=== PATIENT | male | born 1940 | race Caucasian/White ===

== ENCOUNTER 2017-01-20 19:51 | Inpatient (IN) | payer MEDICARE, OTHER ==
--- NOTE | ~2017-01-20 | PUL ---
[id number] [place]. [address] NAME: BEAU HANSEN : 39 STATUS : DIS IN PAT#: [id number] AGE: 76 ADM/REG DATE : 01/21/17 MR#: [id number] REPORT SERV DATE: 01/22/17 DICTATED BY: TREVOR QUIROGA DATE: 01/22/17 REPORT STATUS : Draft TRANSCRIBED BY: MODL DATE: 01/22/17 PULMONARY FUNCTION TEST TEST: Overnight pulse oximetry done on room air. DATA: Total recording time 6 hours 23 minutes, mean pulse 52, mean oxygen saturation 94.4%. Time with an oxygen saturation less than 88% is 0. INTERPRETATION: This is a normal overnight pulse oximetry test on room air. HFQ/LISAL Trevor Quiroga MD / [id number] CC: Leonardo Lugo M.D.
--- NOTE | ~2017-01-20 | DS ---
Discharge Summary [facility] [address] [place]. [address] NAME: BEAU HANSEN : 39 STATUS : DIS IN PAT#: [id number] AGE: 76 ADM/REG DATE : 01/21/17 MR#: [id number] REPORT SERV DATE: 01/23/17 DICTATED BY: MANDEEP SANTANA DATE: 01/22/17 REPORT STATUS : Draft TRANSCRIBED BY: MODL DATE: 01/22/17 ADMISSION DATE: 01/21/2017 DISCHARGE DATE: 01/22/2017 DISCHARGE DIAGNOSES: 1. Generalized weakness, gait disturbance, dysarthria. 2. High-grade left posterior circulation arterial stenosis with numerous chronic ischemic changes in the setting of a history of cerebrovascular accident. 3. Acute kidney injury, resolved. 4. Bradycardia. 5. Hypertension. 6. Obstructive sleep apnea, on current CPAP therapy. 7. Atrial fibrillation and chronic Coumadin therapy, most recent INR 2.7. 8. Morbid obesity. 9. History of paroxysmal supraventricular tachycardia. DISCHARGE MEDICINES: Aspirin 325 mg daily, Colazal 2250 mg daily, Bentyl 20 mg four times a day, Zantac 300 mg at bedtime, flecainide 50 mg twice a day, glucosamine chondroitin one tablet daily, Coumadin 4 mg at bedtime, diltiazem ER 120 mg daily, hydrochlorothiazide 12.5 mg daily, mesalamine 950 mg every other day, Antivert 25 mg three times a day p.r.n., Qvar inhale two puffs twice, Flonase nasal spray nares p.r.n. for allergies, Zyrtec 10 mg daily p.r.n. for allergies, Annie 180 mg daily p.r.n. for allergies, Nexium 40 mg daily, Probiotic [id number] one daily, Bioflex tablet [id number] daily, Blue-Emu ointment p.r.n. to joints, Lipitor 40 mg p.o. at bedtime, new prescription was written for this. HISTORY OF PRESENT ILLNESS: This is a pleasant 76-year-old white male who presented with some weakness and dizziness after working in the yard. Please see the initial H and P of Dr. Fco Khan. This patient was admitted to the Hospitalist Service for further evaluation and treatment. CONSULTS DURING THIS ADMISSION: Include Neurology, Dr. Torie Ruelas. PROCEDURES AND IMAGING: During this admission include initial CT of the brain that showed no acute CVA or other intracranial pathology that was acute, moderate to advanced diffuse cerebral involutional changes, deep white matter chronic microvascular ischemic changes. A carotid ultrasound that showed category 1 less than 50% stenosis bilaterally. An echocardiogram showing an ejection fraction of 60% with moderate pulmonary hypertension and mild tricuspid regurg. An MRI of the brain showing left posterior circulation artery of peripheral high-grade stenosis, atherosclerotic plaque present elsewhere with mild irregularities, but no significant stenosis and chronic small vessel ischemic changes with no other acute findings. HOSPITAL COURSE: I saw the patient beginning on 01/21/2017 where he was feeling some better. Symptoms had seemed to resolve but stated that the weakness, gait disturbance, dysarthria had been going on for quite some time ebbing and flowing, and he reported it at times when Discharge Summary [address] [address] NAME: BEAU HANSEN : 39 STATUS : DIS IN PAT#: [id number] AGE: 76 ADM/REG DATE : 01/21/17 MR#: [id number] REPORT SERV DATE: 01/23/17 DICTATED BY: MANDEEP SANTANA DATE: 01/22/17 REPORT STATUS : Draft TRANSCRIBED BY: LETHA DATE: 01/22/17 he was at synagogue and reported it at times at home so much more of a chronic problem and also he stated that his memory had not been as good as it had once been as well. After discussion with the neurologist, it was determined to obtain the above-described MRI. He had the above-described echocardiogram, carotid studies as well. Initially, the patient was somewhat bradycardic and his Cardizem was held; however, his heart rate then rebounded to the 90s. Cardizem was resumed. He stated that he was currently on CPAP therapy but it had been more than five years since he had had a sleep study. So an overnight oximetry test was done to further assess hypoxemia and this was within normal limits. But have instructed the patient that he does need to probably get an outpatient sleep study done. He continued to do well, improved and was felt safe for discharge home on 01/22/2017. I have instructed him to follow up with the neurologist in four to six weeks, to follow up with his primary care in the next seven days. We discussed the addition of Lipitor to his overall regimen and getting B12 injections through his primary care, given his physical exam findings of peripheral neuropathy and B12 of less than 400. He will also be following up with a will call order clerk given his finding of pulmonary hypertension and his known obstructive sleep apnea and discussed at length with the findings of the imaging testings with the neurologist, Dr. Torie Ruelas, who is in agreement with this plan going forward. I have updated the patient and the patient's at bedside. Questions were answered extensively. Please note that greater than 30 minutes was spent on this discharge for medication teaching, followup planning, and further disposition. CSC/MODL Mandeep Santana NP / [id number] CC: Leonardo Lugo M.D.
--- NOTE | ~2017-01-20 | HP ---
History And Physical [address] [place]. [address] NAME: BEAU HANSEN : 38 STATUS : ADM Samir PAT#: [id number] AGE: 76 ADM/REG DATE : 01/20/17 MR#: [id number] REPORT SERV DATE: 01/21/17 DICTATED BY: ISAIAH BOWDEN DATE: 01/21/17 REPORT STATUS : Draft TRANSCRIBED BY: MODJane DATE: 01/21/17 DATE OF ADMISSION: 01/20/2017 CHIEF COMPLAINT: This 76-year-old male presenting with dizziness and weakness episode after working in the yard this afternoon. HISTORY OF PRESENT ILLNESS: The patient's history was obtained through careful interview with the patient and , coupled with review of [facility] and [facility] medical records. The patient wonders if over the last month he has been having symptoms that have led up to tonight's presentation. He states he has been bumping into things, been unsteady in his gait. Sometimes he has had problems with his memory and occasional slurring of his speech as well. 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 It is in this context that on the day of admission, the patient was acting "like the weekend warrior," according to his mowing the grass and weed eating, and moving wheelbarrow about the yard. Apparently, he did not drink much water prior to this. It was a humid day, unseasonably sql engineer the 80s for this time of year, and he had to sit down after this and was trying to work on some aspects of his weed eater (possibly changing the string in it) when suddenly he had an extreme sense of dizziness and "profound weakness" as he calls it. He just felt weak all over and he actually was so weak that he could not even get up from a seated position and had to lay down against the bench. He was really unable to ambulate and had this weakness for 60 minutes or more before it began to subside. No facial droop. No double vision. No dysarthria today. No hemiparesis. He did not particularly feel more confused than normal. He believes he had a very similar episode back in 05/2016 and at that time, he was also doing quite a bit of work and had also developed a "virus" and had to be hospitalized at [facility] with almost the same exact symptoms as he presents with tonight. At that time, he had a negative MRI of the brain and with IV fluid resuscitation improved. The patient, this evening, did develop some slight chest discomfort described as a tightness across the middle of the chest with slight shortness of breath, six out of 10 severity. Its duration was about 30 minutes before it subsided spontaneously. He has had some nausea, but no vomiting. No change of bowel or bladder habit. REVIEW OF SYSTEMS: Otherwise, a 14-point review of systems was obtained and was negative. PAST MEDICAL HISTORY: 1. Atrial fibrillation, status post cardiac ablation, 2003, under the care Dr. Mustafa. 2. Obstructive sleep apnea. History And Physical [address] [address] NAME: BEAU HANSEN : 38 STATUS : ADM Samir PAT#: [id number] AGE: 76 ADM/REG DATE : 01/20/17 MR#: [id number] REPORT SERV DATE: 01/21/17 DICTATED BY: ISAIAH BOWDEN DATE: 01/21/17 REPORT STATUS : Draft TRANSCRIBED BY: LETHA DATE: 01/21/17 3. Left temporal lobe stroke, 2010, with chronic gait disturbance related to that. 4. COPD/asthma. 5. Ulcerative colitis in the past. This seems to be in remission on mesalamine, followed by Dr. Zheng. 6. Peptic ulcer disease in the duodenum with reflux symptoms. 7. Meniere's. 8. Tao's esophagus with gastric polyp history. 9. Colon polyps. 10.Multi nodular goiter. 11.Pneumonia. PAST SURGICAL HISTORY: 1. Cardiac ablation. 2. Cholecystectomy. 3. Appendectomy. 4. Vasectomy. 5. Ear cyst surgery. ALLERGIES: ADHESIVE. SOCIAL HISTORY: Used to be a heavy smoker up to two packs per day, but quit more than 10 years ago. Occasional alcohol use. 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 He is , has four children. FAMILY HISTORY: Father with myocardial infarction. Mother with ovarian cancer. Brother of lung cancer. CURRENT MEDICATIONS: Include aspirin 325 mg p.o. daily, Colazal, Zyrtec 10 mg p.o. daily as needed, Bentyl 20 mg p.o. four times a day, diltiazem extended release 120 mg p.o. daily, Nexium 40 mg p.o. daily, Annie p.r.n., flecainide 50 mg p.o. b.i.d., Flonase, glucosamine, hydrochlorothiazide 12.5 mg p.o. daily, Antivert, Zantac 300 mg p.o. at bedtime, mesalamine 950 mg p.o. every other day, Qvar, Blue-Emu ointment, probiotics, Bioflex, Coumadin 4 mg p.o. at bedtime. PHYSICAL EXAMINATION: VITAL SIGNS: Temperature 97.8, pulse 58, blood pressure 153/56, respiratory rate is 14, O2 saturation 92% on room air. GENERAL: A pleasant, cooperative male. No evidence of acute distress. HEENT: Pupils equal, round, and reactive to light. No conjunctival pallor. No scleral icterus. Nares are patent. Oropharynx is clear of obstruction. Dry mucous membranes. NECK: Trachea midline. No thyromegaly. LYMPH: No cervical lymphadenopathy. No supraclavicular lymphadenopathy. RESPIRATORY: Clear to auscultation at bases. No wheezes, rales, or rhonchi. Normal respiratory effort. CARDIOVASCULAR: Bradycardic, regular rhythm. No murmurs, rubs, or gallops. No extremity edema is appreciated. ABDOMEN: Soft, nontender, nondistended. Normal bowel sounds auscultated throughout. A History And Physical [address] [address] NAME: BEAU HANSEN : 38 STATUS : ADM Samir PAT#: [id number] AGE: 76 ADM/REG DATE : 01/20/17 MR#: [id number] REPORT SERV DATE: 01/21/17 DICTATED BY: ISAIAH BOWDEN DATE: 01/21/17 REPORT STATUS : Draft TRANSCRIBED BY: MODL DATE: 01/21/17 central pattern of morbid obesity. No hepatosplenomegaly. DERMATOLOGICAL: Warm and dry extremities, no pallor, no cyanosis. PSYCHIATRIC: Anxious affect and mood. Alert and oriented x3. NEUROLOGIC: Cranial nerves II through XII are intact and symmetrical. The patient has 5/5 strength in upper and lower extremities that is symmetrical. LABORATORY DATA: White blood cell count 11.3, hemoglobin 14, hematocrit 43, platelets 258. Sodium 143, potassium 3.3, chloride 108, bicarb 24, BUN 20, creatinine 0.48 from baseline creatinine of 0.9, glucose 139. CPK 463. Troponin negative. INR 2.8. Urinalysis negative for an infection, but shows six hyaline casts. STUDIES: 1. Chest x-ray by my own evaluation shows no acute cardiopulmonary process. 2. EKG by my own evaluation shows sinus bradycardia, premature atrial complex. 3. CT scan of the brain without contrast shows no acute intracranial process. ASSESSMENT AND PLAN: 1. Gait disturbance, memory problems, dysarthria, progressive. Obtain a Neurology consult. On aspirin and Coumadin. Check telemetry. 2. Heat exhaustion with rhabdomyolysis. Place on IV fluids. Follow his CPK. 3. Acute kidney injury. Hold hydrochlorothiazide. Place on IV fluids. 4. Paroxysmal atrial fibrillation with good INR, on Coumadin, in sinus rhythm now. Check telemetry. KPL/MODL Isaiah Bowden M.D. / [id number] CC: Pawan [facility] M.D.
[2017-01-20 19:36] LABS: BASOPHILS 0.6 %; BASOPHILS ABSOLUTE 0.07 10/3/uL (0.0-0.16); EOSINOPHILS 2.9 %; EOSINOPHILS ABSOLUTE 0.33 10/3/uL (0.0-0.53); ER CBC TAT 0 Hrs 09 Mins; HEMOGLOBIN 14.4 g/dL (13.6-17.8); IMMATURE GRANULOCYTES 0.6 %; IMMATURE GRANULOCYTES ABSOLUTE 0.07 10/3/uL (0.0-0.11); LYMPHOCYTES ABSOLUTE 2.71 10/3/uL (0.67-4.30); MEAN CORPUS HGB CONC 33.5 g/dL (32.0-36.0); MEAN CORPUSCULAR HEMOGLOB 27.9 pg (26.0-34.0); MEAN CORPUSCULAR VOLUME 83.2 fL (80-100); MEAN PLATELET VOLUME 10.1 fL (9.2-13.0); MONOCYTES 11.4 %; MONOCYTES ABSOLUTE 1.29 10/3/uL (0.21-1.20); NEUTROPHILS 60.5 %; NEUTROPHILS ABSOLUTE 6.84 10/3/uL (2.02-8.40); PLATELET COUNT 258 10/3/uL (150-400); RBC DISTRIBUTION WIDTH 15.3 % (12.0-16.0); RED CELL COUNT 5.17 10/6/uL (4.7-6.1); WHITE BLOOD CELLS 11.3 10/3/uL (4.5-10.5)
[2017-01-20 19:39] LABS: MANUAL DIFF NO %
[2017-01-20 19:44] LABS: INTERNATIONAL NORMAL RATI 2.8 UNITS (-); PARTIAL THROMBO TIME 40.3 SEC (22.5-37.2)
[2017-01-20 19:51] LABS: PROTIME (NOT ORD) 28.9 SEC (12.0-14.5)
[~2017-01-20 19:51] MED LIST: ALLEGRA180 PO; ASA5GR PO; ATRONASAL6 NAS; BENTYL10 PO; BENTYL20 PO; C1 PO; C25 PO; C5 PO; CARDCD120 PO; CARDCD180 PO; CARTIA XT120 MG/24 PO; COLAZAL 750 MG750 MG OR; COUMADIN3 MG PO; COUMADIN4 MG PO; FLECAINIDE; FLECAINIDE50 MG PO; GAS-X80 MG PO; HYDROCHLOROT12.5 MG PO; HYDROCHLOROTHIAZIDE; LEVBID; LEVBID PO; LOVENOX1C SC; MESALAMINE PR; MICROZIDE PO; MULTIPLE VIT PO; NASONEX NAS; NEXIUM40 PO; PATANASE0.6 % NAS; PRILOSEC; PRILOSEC OTC20 MG PO; PROVENTIL; PROVHFA INH; PULRESP.25 INH; QVAR40 MC1 INH; TAMBO50 PO; ZANTAC150 MG PO; [UNRECOGNIZED DRUG - OTHER] PR; cardizem
[2017-01-20] MEDS ORDERED: ZANTAC300 MG PO (19:52)
[2017-01-20] MEDS ORDERED: COLAZAL750 MG PO (19:52)
[2017-01-20] MEDS ORDERED: COUMADIN4 MG PO (19:52)
[2017-01-20 19:53] LABS: BUN (BLOOD UREA NITROGEN) 20 MG/DL (6-23); CALCIUM, SERUM 8.5 MG/DL (8.5-10.4); CHEST PAIN PROFILE TAT 0 Hrs 26 Mins; CHLORIDE, SERUM 108 MMOL/L (96-112); CO2 (CARBON DIOXIDE) 24 MMOL/L (24-34); CREATININE 1.48 MG/DL (0.70-1.30); GFR AFRICAN AMERICAN 52 ML/MIN (>=60); GFR NON AFRICAN AMERICAN 45 ML/MIN (>=60); GLUCOSE, SERUM 139 MG/DL (60-99); POTASSIUM, SERUM 3.3 MMOL/L (3.5-5.3); SODIUM, SERUM 143 MMOL/L (135-148); TROPONIN I <0.02 NG/ML (<0.05)
[2017-01-20] MEDS ORDERED: MCZ25 PO (19:53)
[2017-01-20] MEDS ORDERED: QVAR INHALER INH (19:53)
[2017-01-20] MEDS ORDERED: ASAEC PO (19:54)
[2017-01-20] MEDS ORDERED: FLONASE NAS (19:54)
[2017-01-20] MEDS ORDERED: GLUCCHONDR PO (19:54)
[2017-01-20] MEDS ORDERED: NEXIUM40 PO (19:55)
[2017-01-20] MEDS ORDERED: ALLEGRA180 PO (19:55)
[2017-01-20] MEDS ORDERED: ZYRTEC ALLGY10 MG PO (19:55)
[2017-01-20] MEDS ORDERED: BLUE EMU TOP (19:56)
[2017-01-20] MEDS ORDERED: PROBIOTIC OTC PO (19:57)
[2017-01-20] MEDS ORDERED: BIOFLEX PO (19:57)
[2017-01-20 20:15] LABS: D-DIMER QUANTITATIVE < 0.27 ug/mLFEU (< 0.50)
[2017-01-20 20:59] LABS: WBC (NOT ORDERED) (RFLEX) 0 (0-5)
[2017-01-20 21:06] LABS: CPK (IF ELEVATED MB BANDS) 463 U/L (0-200)
[2017-01-20 21:07] LABS: ASCORBIC ACID (UR NOT ORDER) NEG (NEG); BILIRUBIN, URINE NEGATIVE (NEG); ER URINALYSIS TAT 0 Hrs 14 Mins; KETONE, URINE NEGATIVE (NEG); LEUKOCYTE ESTERASE(NOT OR NEG (NEG); NITRITE (URINE) NEG (NEG)
[2017-01-20 21:07] LABS: CK-MB 2.3 NG/ML
[2017-01-21 05:15] LABS: BASOPHILS 0.5 %; BASOPHILS ABSOLUTE 0.05 10/3/uL (0.0-0.16); EOSINOPHILS 3.4 %; EOSINOPHILS ABSOLUTE 0.32 10/3/uL (0.0-0.53); HEMATOCRIT 42.6 % (40.0-51.0); HEMOGLOBIN 13.9 g/dL (13.6-17.8); IMMATURE GRANULOCYTES 0.5 %; IMMATURE GRANULOCYTES ABSOLUTE 0.05 10/3/uL (0.0-0.11); LYMPHOCYTES 28.4 %; LYMPHOCYTES ABSOLUTE 2.68 10/3/uL (0.67-4.30); MANUAL DIFF NO %; MEAN CORPUS HGB CONC 32.6 g/dL (32.0-36.0); MEAN CORPUSCULAR HEMOGLOB 27.8 pg (26.0-34.0); MEAN CORPUSCULAR VOLUME 85.2 fL (80-100); MEAN PLATELET VOLUME 10.1 fL (9.2-13.0); MONOCYTES 12.7 %; NEUTROPHILS 54.5 %; NEUTROPHILS ABSOLUTE 5.14 10/3/uL (2.02-8.40); PLATELET COUNT 254 10/3/uL (150-400); RBC DISTRIBUTION WIDTH 15.5 % (12.0-16.0); WHITE BLOOD CELLS 9.4 10/3/uL (4.5-10.5)
[2017-01-21 05:21] LABS: INTERNATIONAL NORMAL RATI 2.9 UNITS (-); PARTIAL THROMBO TIME 45.3 SEC (22.5-37.2); PROTIME (NOT ORD) 30.1 SEC (12.0-14.5)
[2017-01-21 05:39] LABS: BUN (BLOOD UREA NITROGEN) 21 MG/DL (6-23); CALCIUM, SERUM 8.4 MG/DL (8.5-10.4); CHLORIDE, SERUM 109 MMOL/L (96-112); CO2 (CARBON DIOXIDE) 26 MMOL/L (24-34); CPK 377 U/L (0-200); CREATININE 1.25 MG/DL (0.70-1.30); GFR AFRICAN AMERICAN 64 ML/MIN (>=60); GFR NON AFRICAN AMERICAN 55 ML/MIN (>=60); SGOT(AST) 12 U/L (5-40); SGPT(ALT) 13 U/L (5-65); SODIUM, SERUM 143 MMOL/L (135-148); TOTAL BILIRUBIN 0.3 MG/DL (0-1.2); TOTAL PROTEIN 6.2 G/DL (6.0-8.5); TROPONIN I <0.02 NG/ML (<0.05)
[2017-01-21 05:40] LABS: A/G RATIO 0.9 (0.7-1.9); ALBUMIN 2.9 G/DL (3.5-5.0); ALKALINE PHOSPHATASE 65 U/L (45-117); GLOBULIN 3.3 G/DL (2.5-4.1); GLUCOSE, SERUM 96 MG/DL (60-99); POTASSIUM, SERUM 4.1 MMOL/L (3.5-5.3)
[2017-01-22 06:03] LABS: INTERNATIONAL NORMAL RATI 2.7 UNITS (-); PROTIME (NOT ORD) 28.6 SEC (12.0-14.5)
[2017-01-22 06:35] LABS: BUN (BLOOD UREA NITROGEN) 18 MG/DL (6-23); CALCIUM, SERUM 9.2 MG/DL (8.5-10.4); CHLORIDE, SERUM 107 MMOL/L (96-112); CO2 (CARBON DIOXIDE) 28 MMOL/L (24-34); CREATININE 1.23 MG/DL (0.70-1.30); FOLATE 14.2 NG/ML (>5.2); GFR AFRICAN AMERICAN 65 ML/MIN (>=60); GFR NON AFRICAN AMERICAN 56 ML/MIN (>=60); GLUCOSE, SERUM 89 MG/DL (60-99); POTASSIUM, SERUM 4.5 MMOL/L (3.5-5.3); SODIUM, SERUM 141 MMOL/L (135-148)
[2017-01-22] MEDS ORDERED: LIPITOR40 (15:40)
== END 2017-01-22 15:55 | disposition home or self-care (01) | DRG 683 ==
LOC: ER 19:51 → CDU1 21:36
PROVIDERS: Hospitalist; Nurse Practitioner; Nurse Practitioner Family
DX: N17.9 Acute kidney failure, unspecified (principal); K51.90 Ulcerative colitis, unspecified, without complications; M62.82 Rhabdomyolysis; I47.1 Supraventricular tachycardia; I27.2 Other secondary pulmonary hypertension; I48.91 Unspecified atrial fibrillation; J44.9 Chronic obstructive pulmonary disease, unspecified; G62.9 Polyneuropathy, unspecified; K27.9 Peptic ulcer, site unspecified, unspecified as acute or chronic, without hemorrhage or perforation; E66.01 Morbid (severe) obesity due to excess calories; I69.398 Other sequelae of cerebral infarction; R26.89 Other abnormalities of gait and mobility; K21.9 Gastro-esophageal reflux disease without esophagitis; H81.09 Meniere's disease, unspecified ear; R47.1 Dysarthria and anarthria; Z86.010 Personal history of colon polyps; Z87.01 Personal history of pneumonia (recurrent); Z90.49 Acquired absence of other specified parts of digestive tract; Z87.891 Personal history of nicotine dependence; Z68.35 Body mass index [BMI] 35.0-35.9, adult; Z79.01 Long term (current) use of anticoagulants; T67.5XXA Heat exhaustion, unspecified, initial encounter; X58.XXXA Exposure to other specified factors, initial encounter
CPT/HCPCS: 70450; 70544; 70547; 70551; 71010; 80048; 80053; 81001; 82306; 82550; 82553; 82607; 82746; 83735; 83880; 84443; 84484; 85025; 85379; 85610; 85652; 85730; 93005; 93306; 93880; 94640; 94762; 97161-GP; 99285; A9270-GY; G8978-CJ-GP; G8980-CJ-GP; J0360